=== PATIENT | female | born 1990 | race Caucasian/White ===

== ENCOUNTER 2017-08-29 18:09 | Emergency (ER) | payer OTHER ==
[~2017-08-29] VITALS: Ht 162.6 cm; Wt 97.1 kg
[2017-08-29 18:46] VITALS: Ht 162.6 cm; Wt 97.1 kg
[2017-08-29 23:07] VITALS: BP 124/68
== END 2017-08-29 23:07 | disposition home or self-care (01) ==
LOC: ED 18:09
DX: S93.601A Unspecified sprain of right foot, initial encounter (principal); Z88.1 Allergy status to other antibiotic agents; Z87.891 Personal history of nicotine dependence; X50.1XXA Overexertion from prolonged static or awkward postures, initial encounter; Y93.89 Activity, other specified; Y92.89 Other specified places as the place of occurrence of the external cause; Y99.8 Other external cause status
CPT/HCPCS: J1885